=== PATIENT | female | born 1960 ===

== ENCOUNTER 2018-02-19 09:31 | Day surgery (SDC) | payer MEDICARE ==
[2018-02-11 08:33] VITALS: BMI 24.4
[2018-02-19] MEDS ORDERED: Propofol 10 mg/ml Inj (20 ML) ONE (11:33)
[2018-02-19 12:36] VITALS: O2SAT 100
[2018-02-19] MEDS ORDERED: Sodium Chloride 0.9% 1,000 ML IV SCH (12:45)
[2018-02-19 13:11] VITALS: BP 136/68; PULSE 50; RESP 18; TEMP 98.4
== END 2018-02-19 14:00 | disposition home or self-care (01) ==
LOC: ENDO 09:31
PROVIDERS: ATTEND Internal Medicine Gastroenterology
DX: K29.50 Unspecified chronic gastritis without bleeding (principal); K64.8 Other hemorrhoids; R19.7 Diarrhea, unspecified; R19.4 Change in bowel habit
CPT/HCPCS: 43239; 45380; 88305; 88342; J2001; J2704; J7040 ×2

== ENCOUNTER 2019-03-12 07:55 | Outpatient (CLI) | payer MEDICARE | END 2019-03-12 07:56 | disposition home or self-care (01) | LOC: RAD 07:55 ==